=== PATIENT | female | born 1965 | race Caucasian/White ===

== ENCOUNTER 2016-10-25 04:24 | Inpatient (IN) ==
[2016-10-25] MEDS ORDERED: CARDIZEM ONE ×2 (04:27)
[2016-10-25] MEDS ORDERED: CARDIZEM IV ONE ×2 (04:28→04:30)
[2016-10-25] MEDS: CARDIZEM 100 MG/NS 100 MG/100 ML IVPB IV SCH ×2 (04:39→07:54)
[2016-10-25] MEDS ORDERED: LOPRESSOR ONE (04:40)
[2016-10-25] MEDS ORDERED: LOPRESSOR IV ONE (04:41)
--- NOTE | 2016-10-25 04:58 | EKG Report ---
Test Performed on : 10/25/2016 04:26:57 AM Test Reason : CHEST PAIN Blood Pressure : / mmHG Vent. Rate : 158 BPM Atrial Rate : 089 BPM P-R Int : 000 ms QRS Dur : 072 ms QT Int : 288 ms P-R-T Axes : 000 004 062 degrees QTc Int : 467 ms Atrial fibrillation. with rapid ventricular response. Cannot rule out Anterior infarct , age undetermined Abnormal ECG No previous ECGs available Unconfirmed Result
[2016-10-25] MEDS ORDERED: NS 1,000 ML ONE (05:00)
[2016-10-25] MEDS ORDERED: NS 1,000 ML IV ONE (05:03)
--- NOTE | 2016-10-25 05:05 | PROVIDER DOCUMENTATION ---
HPI-Cardiac General - General Chief Complaint: Palpitations Stated Complaint: SOB, CP Time Seen by Provider: 10/25/16 04:28 Source: patient (Patient is a 50 year morbidly obese white female who arrives by EMS with rapid irregular pulse since 3am after awakening from sleep with associated chest pain. Followed by Dr. Mike.) Allergies/Adverse Reactions: Patient Allergies Allergy/AdvReac Type Severity Reaction Status Date / Time buspirone [From BuSpar] Allergy Unknown Verified 10/25/16 04:30 Penicillins Allergy Unknown Verified 10/25/16 04:30 Home Medications: Home Medication List Medication Instructions Recorded Confirmed Last Taken Type NK [No Home Medications] 10/25/16 10/25/16 Unknown History Review of Systems - Adult - REVIEW OF SYSTEMS - ADULT Constitutional: denies: chills, fever Eyes: reports: no symptoms reported Ears, Nose, Mouth & Throat: reports: no symptoms reported Cardiovascular: reports: see HPI, chest pain, irregular heart rate, palpitations Respiratory: denies: shortness of breath Gastrointestinal: denies: abdominal pain Genitourinary: denies: discharge Musculoskeletal: reports: no symptoms reported Integumentary: reports: no symptoms reported Neurological: reports: no symptoms reported Psychiatric: reports: no symptoms reported Endocrine: reports: no symptoms reported Hematologic/Lymphatic: reports: no symptoms reported Allergic/Immunologic: reports: no symptoms reported All Other Systems: Reviewed and Negative Past History - Adult - PAST MEDICAL HISTORY-ADULT Review of Records: reports: Old Records Reviewed, Nursing Assessment Review, Medications Reviewed, Social history reviewed & non-contributory. Major Childhood Illnesses: reports: denies history Cardiovascular: reports: denies history Respiratory: reports: denies history Gastrointestinal: reports: denies history Neurological: reports: denies history Psychiatric: reports: denies history - PRIOR SURGERIES/PROCEDURES Surgical/Procedure History: reports: cholecystectomy, hysterectomy, , other (breast reduction) - FAMILY HISTORY Family History: diabetes - SOCIAL HISTORY Smoking: denies Substance Use: none/never Alcohol Use Frequency: occasionally Physical Exam-General - CONSTITUTIONAL General Appearance: alert, mild distress, other (nondiaphoretic,morbidly obese) - EYES Eyes: other (clear) - HEAD, EARS, NOSE, MOUTH & THROAT HENMT: normocephalic/atraumatic - NECK Neck: supple - RESPIRATORY Respiratory: lungs clear - CARDIOVASCULAR Cardiovascular: tachycardia, irregularly irregular - GASTROINTESTINAL (ABDOMEN) Abdominal Exam: normal bowel sounds, non tender, soft - MUSCULOSKELETAL Back Exam: normal inspection, no CVA tenderness Extremity: normal range of motion, non-tender, other (no homans,no cords) - SKIN Integumentary: normal color, normal turgor - NEUROLOGIC Neurologic: grossly normal - PSYCHIATRIC Psych/Mental Status: normal thought content Progress - PLAN OF CARE/RESULTS Progress/Plan/Lab Results: Vital Signs - 8 hr 10/25/16 04:25 10/25/16 04:31 10/25/16 04:40 Pulse Rate 161 H 150 H 126 H Respiratory Rate 26 H 21 18 Blood Pressure 252/148 193/121 181/149 O2 Sat by Pulse Oximetry 100 100 100 Laboratory Results - last 24 hr 10/25/16 10/25/16 10/25/16 05:02 05:02 05:02 WBC RBC Hgb Hct MCV MCH MCHC RDW Std Deviation Plt Count MPV Immature Gran % (Auto) Neut % (Auto) Lymph % (Auto) Gonzales % (Auto) Eos % (Auto) Baso % (Auto) Immature Gran # (Auto) Neut # (Auto) Lymph # (Auto) Gonzales # (Auto) Eos # (Auto) Baso # (Auto) PT INR APTT (Factor Assay) D-Dimer Sodium 139 Potassium 3.7 Chloride 104 Carbon Dioxide 23 L Anion Gap 12 BUN 12 Creatinine 0.9 Estimated GFR/1.73 m2 > 60 BUN/Creatinine Ratio 13 Glucose 139 H Calculated Osmolality 280 Calcium 9.3 Magnesium 2.0 Total Bilirubin 0.30 AST 20 ALT 25 Alkaline Phosphatase 72 Creatine Kinase 56 Troponin T < 0.010 [id number]-[id number] Pept 77 Total Protein 6.9 Albumin 4.1 Globulin 3.0 Albumin/Globulin Ratio 1.0 10/25/16 10/25/16 05:02 05:02 WBC 9.47 RBC 5.12 Hgb 15.0 Hct 45.2 MCV 88.3 MCH 29.3 MCHC 33.2 RDW Std Deviation 12.6 Plt Count 300 MPV 9.9 Immature Gran % (Auto) 0.2 Neut % (Auto) 58.5 Lymph % (Auto) 30.3 Gonzales % (Auto) 7.6 Eos % (Auto) 3.2 Baso % (Auto) 0.2 Immature Gran # (Auto) 0.02 Neut # (Auto) 5.54 Lymph # (Auto) 2.87 Gonzales # (Auto) 0.72 H Eos # (Auto) 0.30 Baso # (Auto) 0.02 PT 11.3 L INR 0.76 L APTT (Factor Assay) 31.6 D-Dimer 0.38 Sodium Potassium Chloride Carbon Dioxide Anion Gap BUN Creatinine Estimated GFR/1.73 m2 BUN/Creatinine Ratio Glucose Calculated Osmolality Calcium Magnesium Total Bilirubin AST ALT Alkaline Phosphatase Creatine Kinase Troponin T [id number]-Hmezfzbdavd Pept Total Protein Albumin Globulin Albumin/Globulin Ratio Orders Category Date Time Status Cardiac Monitoring DIRECTED Care 10/25/16 04:29 Active Soriano Cath Insertion ORDERED Care 10/25/16 04:56 Active Oxygen Therapy- ED Nursing DIRECTED Care 10/25/16 04:29 Active Saline Loc NOW Care 10/25/16 04:29 Active CHEST-1 VIEW [RAD] Stat Exams 10/25/16 05:42 Ordered CBC WITH ELECTRONIC DIFF [HEME] Stat Lab 10/25/16 05:02 Completed CK PROFILE [SP CHEM] Stat Lab 10/25/16 05:02 Completed COMPREHENSIVE METABOLIC PANEL [CHEM] Stat Lab 10/25/16 05:02 [address] D-DIMER [address] [COAG] Stat Lab 10/25/16 05:02 Completed MAGNESIUM [CHEM] Stat Lab 10/25/16 05:02 Completed PRO B-NATRIURETIC PEPTIDE Stat Lab 10/25/16 05:02 Completed [address]IME WITH INR PL [COAG] Stat Lab 10/25/16 05:[address] [COAG] Stat Lab 10/25/16 05:02 Completed TROPONIN T Stat Lab 10/25/16 05:02 Completed 0.9% Sodium Chloride Inj [Ns] 1,000 ml Med 10/25/16 05:00 Discontinued .ROUTE As Directed 0.9% Sodium Chloride Inj [Ns] 1,000 ml Med 10/25/16 05:03 Active IV 100 mls/hr Diltiazem 100 mg/Ns [Cardizem 100 mg/Ns] Med 10/25/16 04:30 Active 100 mg in 100 ml IV 10 mg/hr Diltiazem [Cardizem] Med 10/25/16 04:28 Discontinued 10 mg IV NOW ONE Diltiazem [Cardizem] Med 10/25/16 04:30 Discontinued 10 mg IV NOW ONE Metoprolol [Lopressor] Med 10/25/16 04:40 Discontinued 5 mg .ROUTE .STK-MED ONE Metoprolol [Lopressor] Med 10/25/16 04:41 Discontinued 5 mg IV NOW ONE EKG [EKG] Stat Ther 10/25/16 04:29 Draft EKG [EKG] Stat Ther 10/25/16 05:45 Ordered Result Diagrams: 10/25/16 05:02 10/25/16 05:02 - CONSULTS/PCP/HOSPITALIST Notification #1 *Consult/PCP/Hospitalist*: Dr. Boothe, hospitalist Time Discussed: 05:05 Reason/Comments: admit pending labs, call back for elevated troponin Consult Disposition: Admit Departure - Departure Date of Disposition Decision: 10/25/16 Time of Disposition Decision: 05:46 DIAGNOSIS: Atrial fibrillation with RVR Chest pain Qualifiers: Chest pain type: unspecified Qualified Code(s): R07.9 - Chest pain, unspecified Disposition: ADMITTED INPATIENT 09 Certified Medical Emergency: Emergent Condition: Stable Referrals and Follow-Ups: Chip Georges MD [Primary Care Provider] - - Critical Care Note This patient required my direct & personal management of CC.: Yes Total Time (mins): 80 Critical Care Statement: This patient required my direct personal management to treat or rule out processes, the absence of which, could potentiallly result in sudden, clinically significant life or limb threatening deterioration. Attestation - Physician/ MAUDE Attestation Patient care was provided by Advanced Practice Provider:: No The physician spent face to face time with patient:: Yes Advanced Practice Provider documentation review:: Supervising physician onsite and consulted in the evaluation and care of this patient. The physician did have a face to face encounter with the patient.
[2016-10-25 05:10] LABS: MANUAL DIFF NEEDED? NO
[2016-10-25 05:12] LABS: BASO% 0.2 % (0.0-0.8); EOS% 3.2 % (0.0-10.0); HEMATOCRIT 45.2 % (37.0-47.0); IMM GRAN# 0.02 X1000 (0.0-0.04); IMM GRAN% 0.2 % (0.0-0.5); LYMPH# 2.87 X1000 (1.2-3.4); LYMPH% 30.3 % (20.5-51.1); MCH 29.3 PG (27-31); MCHC 33.2 g/dL (33-37); MCV 88.3 FL (81-99); MONO# 0.72 X1000 (0.11-0.59); MONO% 7.6 % (1.7-9.3); MPV 9.9 FL (7.4-10.4); NEUT% 58.5 % (42.2-75.2); PLT 300 X1000 (130-400); RBC 5.12 XMIL (4.2-5.4)
[2016-10-25 05:31] LABS: PROTIME 11.3 Seconds (12.1-15.5); PTT PL 31.6 Seconds (22.6-43.9)
[2016-10-25 05:40] LABS: INR 0.76 (0.86-1.15)
[2016-10-25 05:41] LABS: AGAP 12; ALBUMIN 4.1 g/dL (3.5-5.0); ALKALINE PHOSPHATASE 72 U/L (32-104); BUN 12 mg/dL (8-22); CALCIUM 9.3 mg/dL (8.8-10.2); CHLORIDE 104 mmol/L (98-107); CK PROFILE 56 U/L (24-173); COSMO 280; GOT 20 U/L (10-30); GPT 25 U/L (10-36); POTASSIUM 3.7 mmol/L (3.5-5.1); SODIUM 139 mmol/L (136-145); TCO2 23 mmol/L (25-35); TOTAL PROTEIN 6.9 g/dL (6.3-8.3)
--- NOTE | 2016-10-25 05:49 | EKG Report ---
Test Performed on : 10/25/2016 04:45:44 AM Test Reason : a-fib Blood Pressure : / mmHG Vent. Rate : 097 BPM Atrial Rate : 357 BPM P-R Int : 000 ms QRS Dur : 084 ms QT Int : 296 ms P-R-T Axes : 000 -01 006 degrees QTc Int : 375 ms Atrial fibrillation. Low voltage QRS Cannot rule out Anterior infarct (cited on or before 25-OCT-2016) Abnormal ECG When compared with ECG of 25-OCT-2016 04:44, (Unconfirmed) QT has shortened Unconfirmed Result
--- NOTE | 2016-10-25 07:09 | Diag Imaging Result Doc PS360 ---
EXAM: CHEST-1 VIEW HISTORY: chest pain TECHNIQUE: Erect AP portable at 0538 COMMENT: The lungs are clear and the heart and pulmonary vascularity are within normal limits. There are no previous studies. IMPRESSION: Normal chest. Electronically signed by Judd Harrison 10/25/2016 7:06 AM
[2016-10-25] MEDS ORDERED: CARDIZEM 100 MG/NS 100 MG/100 ML IVPB IV SCH ×2 (10:35→11:09)
[2016-10-25] MEDS ORDERED: CARDIZEM PO ONE (11:08)
[2016-10-25] MEDS ORDERED: LOVENOX SUBQ SCH (11:15)
[2016-10-25] MEDS ORDERED: ZOFRAN IV PRN (11:38)
[2016-10-25] MEDS: TYLENOL PO PRN ×2 (11:58→19:19)
--- NOTE | 2016-10-25 15:27 | EKG Report ---
Test Performed on : 10/25/2016 2:32:42 PM Test Reason : rhythm change Blood Pressure : / mmHG Vent. Rate : 069 BPM Atrial Rate : 069 BPM P-R Int : 184 ms QRS Dur : 086 ms QT Int : 402 ms P-R-T Axes : 044 -17 021 degrees QTc Int : 430 ms Normal sinus rhythm. Low voltage QRS Borderline ECG When compared with ECG of 25-OCT-2016 04:45, (Unconfirmed) Sinus rhythm. has replaced Atrial fibrillation. QT has lengthened Unconfirmed Result
--- NOTE | 2016-10-25 16:38 | CONSULTATION ---
DATE OF CONSULTATION: 10/25/2016 INDICATION FOR THE CONSULTATION: New onset atrial fibrillation. HISTORY OF PRESENT ILLNESS: Ms. Zapata is a 50-year-old white female with a history of previous TIAs diagnosed a number of years ago by Dr. Thompson. I have no objective evidence of this in the notes. She does seem to carry a history of obstructive sleep apnea diagnosed in 2003. This was previously evaluated by Dr. Bill. She presented for evaluation of a shortness of breath episode that apparently awoke her from sleep this morning. She presented to the ER and was found to be in atrial fibrillation with a rate of 158 beats per minute. 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 Presently, she has no complaints. She is not having any chest pain. She denies any orthopnea. PAST MEDICAL HISTORY POSITIVE FOR: 1. Possible hypertension. She is not currently on medications but she was noted to be markedly hypertensive on presentation to the ER. In addition, she seems to be tolerating doses of diltiazem at 60 p.o. q.6 hours suggesting some degree of hypertension regardless of the ER presentation. 2. Obstructive sleep apnea diagnosed [place] [address] Bill. 3. Suggested history of TIAs that she says was evaluated by Dr. Thompson here several years ago. SOCIAL HISTORY: Her fiancee is present in the room. No apparent tobacco use. FAMILY HISTORY: Significant for hypertension. REVIEW OF SYSTEMS: A 10 system review of systems is negative except for those mentioned in HPI. PHYSICAL EXAMINATION: Vital signs: Afebrile. Heart rate 71, blood pressure 132/72. General: She is in no acute distress. HEENT: Oropharynx is moist. Normal dentition. Eye examination shows pink conjunctivae, white sclerae. Neck: Examination shows no obvious thyromegaly or thyroid tenderness. Cardiovascular: She is in a regular rate and rhythm. She has no murmurs. She has no S3. She has no S4. She has no lower extremity edema. Chest: Clear bilaterally. She has no increased work of breathing. Abdomen: Soft, nontender, nondistended. She has no obvious organomegaly. Skin Exam: Warm and dry throughout. Neurological: Moving all extremities well. Cranial nerves 2-12 are intact without any sensation deficits. Psychiatric: Alert, oriented, pleasant. Normal mood and affect. PERTINENT DATA: Her EKG on presentation at 4:26 this morning shows atrial fib rate of 158 beats per minute. Followup EKG at 4:45 this morning shows atrial fibrillation with a controlled ventricular response rate of 97 beats per minute. Final EKG occurring today at 14:32 shows sinus rhythm, rate of 69 beats per minute. Her chest x-ray demonstrated no evidence of any acute findings. Her laboratory data shows a white count of 9.5, hematocrit 45, platelet count 300,000. Her INR is 0.76. D-dimer was normal. Sodium 139, potassium is 3.7, BUN 12, creatinine 0.9. Her cardiac enzymes are negative. ProBNP is normal. TSH 3.86. I reviewed her echocardiogram which is unremarkable and seems to show normal LV function as well as no significant valvular abnormalities. ASSESSMENT: New onset atrial fibrillation in a patient with a [id number] score of 4 (hypertension, female sex, TIA). PLAN: Given her elevated [id number] score, I have discontinued the Lovenox and I have placed an order for oral Pradaxa at 150 mg b.i.d. with the 1st dose in the morning considering that her initial dose of Lovenox was given around noon today. I agree with continued use of diltiazem and then may switch that to long-acting diltiazem at 240 mg daily in the morning. Considering her normal TSH and unremarkable echo if she remains in sinus rhythm she may be discharged tomorrow. I have made a followup appointment with me within the next month in the discharge plan. I believe she needs re-evaluation with a sleep study and I will refer her back to Dr. Bill considering he was the one doing the evaluation in 2003. cc: Valente Elizabeth MD
[2016-10-25] MEDS: CARDIZEM PO SCH ×2 (17:19→22:13)
--- NOTE | 2016-10-25 23:51 | HISTORY AND PHYSICAL ---
CHIEF COMPLAINT: Palpitations. HISTORY OF PRESENT ILLNESS: This is a 50-year-old female with no significant medical problems except for that she has hypertension who came in for palpitations and dyspnea. She felt like she could not catch her breath. Significant palpitations occurring for the last 24 hours. She says she has probably had episodes the last 1 or 2 episodes and she came in for evaluation. She was in atrial fibrillation with rapid ventricular response and she was admitted for treatment. She has been rate controlled on Cardizem. So she stabilized on that. She denies any previous history of cardiac issues. No recent changes in medications. No thyroid issues. Again, admitted for atrial fibrillation. She does report some chest tightness mostly with tachycardia. PAST MEDICAL HISTORY: Hypertension, but she is not on medications. PAST SURGICAL HISTORY: 1. Cholecystectomy. 2. Hysterectomy. 3. . 4. Breast reduction surgery. FAMILY HISTORY: Positive for diabetes. SOCIAL HISTORY: No tobacco. No alcohol. ALLERGIES: Buspirone and penicillin. HOME MEDICATIONS: Denies. REVIEW OF SYSTEMS: Ten point review of systems otherwise negative x10 systems. PHYSICAL EXAMINATION: VITAL SIGNS: Blood pressure 132/72, heart rate of 71, respiratory rate 18, temperature 98.7 degrees, 98% on room air. GENERAL: A well-developed female in no acute distress. HEAD: Normocephalic, atraumatic. EYES: Pupils equal, round, reactive to light. Extraocular movements were intact. EAR/NOSE/THROAT: Moist mucous membranes. NECK: Supple. CARDIOVASCULAR: Regular rate and rhythm. No murmurs, gallops, or rubs. PULMONARY: Bilateral breath sounds clear to auscultation. GASTROINTESTINAL: Soft, nontender, nondistended. Bowel sounds are positive. EXTREMITIES: No clubbing or cyanosis. LYMPHATICS: No peripheral edema. NEUROLOGICAL: Exam was nonfocal. LABORATORY DATA: White count 9, hemoglobin and hematocrit of 15 and 45, platelets of 300,000. Coags normal. CMP normal. EKG showed atrial fibrillation with rapid ventricular response. ASSESSMENT: 1. This is a 50-year-old female who comes in for atrial fibrillation. She has now converted. She is on oral Cardizem and seems to be doing okay. Echocardiogram has been ordered. Thyroid function tests. She is having persistent chest pain so we pursued a Cardiology consult but likely we will set up as an outpatient. 2. Hypertension. We may have to add the lisinopril at this point. We will see how she does on Cardizem. 3. Concern over possible hyperglycemia. We will monitor her sugars and check an A1c. DISCHARGE CONDITION: Hopefully discharged in the next 24 hours. cc: Yuval Boothe MD
[2016-10-26] MEDS: CARDIZEM PO SCH ×3 (05:41→11:55)
[2016-10-26 06:49] LABS: HEMATOCRIT 42.8 % (37.0-47.0); HEMOGLOBIN 13.9 g/dL (12.0-16.0); MCH 29.1 PG (27-31); MCHC 32.5 g/dL (33-37); MCV 89.5 FL (81-99); MPV 9.9 FL (7.4-10.4); RBC 4.78 XMIL (4.2-5.4)
[2016-10-26 07:10] LABS: AGAP 10; BUN 11 mg/dL (8-22); CALCIUM 9.1 mg/dL (8.8-10.2); CHLORIDE 107 mmol/L (98-107); COSMO 282; POTASSIUM 4.2 mmol/L (3.5-5.1); SODIUM 141 mmol/L (136-145); TCO2 25 mmol/L (25-35)
[2016-10-26 07:39] VITALS: BP 107/60
[2016-10-26] MEDS ORDERED: PRADAXA PO SCH (09:00)
[2016-10-26] MEDS: CARDIZEM CD PO ONE (11:55)
--- NOTE | 2016-10-26 15:42 | ECHO REPORT ---
ORDER DATE: 10/25/2016 INDICATION FOR THE STUDY: New-onset atrial fibrillation. FINDINGS: 1. Right atrium is normal size. 2. No significant tricuspid regurgitation was identified. 3. Normal RV size and systolic function. 4. Mild pulmonic insufficiency. 5. Mild left atrial enlargement at 4.7 cm. 6. No mitral valve prolapse. Trace mitral regurgitation. 7. Normal LV size, end-diastolic dimension of 4.6. Mild left ventricular hypertrophy with a posterior and interventricular septal wall thickness 1.2 cm each. Normal LV systolic function. Calculated EF of 64%, with normal wall motion. 8. Aortic valve opens well. No evidence of stenosis or insufficiency. 9. Aorta appears normal in visualized segments. 10. No pericardial effusion seen. 11. During the course of the study, the patient was in sinus rhythm. cc: MD Yuval Maria MD
[2016-10-26] MEDS ORDERED: CARDIZEM CD PO ONE (18:36)
--- NOTE | 2016-10-26 19:18 | DISCHARGE SUMMARY ---
ADMISSION DATE: 10/25/2016 DISCHARGE DATE: 10/26/2016 ADMISSION DIAGNOSIS: Atrial fibrillation with rapid ventricular response, new onset. DISCHARGE DIAGNOSIS: Atrial fibrillation with rapid ventricular response, new onset. HOSPITAL COURSE: Briefly, this is a 50-year-old female with history of hypertension, although I do not think she has been currently on medications, presenting with atrial fibrillation with RVR. She was rate controlled with Cardizem when she came in, transitioned to oral Cardizem. Echocardiogram has been pursued. Thyroid function tests were analyzed which were unremarkable. She spontaneously converted on the Cardizem and I think now is normal sinus. She had ruled out with cardiac enzymes. Cardiology was consulted. Per Dr. Elizabeth, he converted her from Lovenox to Pradaxa. Her CHADS2-VASc score was actually calculated. He calculated it at 4 because she had a TIA history. We will discharge her on Cardizem 240 and Pradaxa. She was also encouraged to follow up for a sleep study and then will follow up with Cardiology for further treatment options. The following day she was examined. Clear lung exam. Heart rate was under control. She had ambulated without difficulty and was felt stable to discharge. DISCHARGE MEDICATIONS: 1. Pradaxa 150 b.i.d. 2. Cardizem 240 daily. DISCHARGE TIME: Thirty-two minutes. cc: MD Chip Coleman MD Peter Johnson, MD
[2016-10-29] MEDS: CARDIZEM CD PO ONE (10:51)
== END 2016-10-26 12:15 | disposition home or self-care (01) ==
LOC: P.ED 04:24 → P.ICU 05:59 → P.MEDSURG 15:19 → UNDODISIN 10-26 12:14
PROVIDERS: ATTEND Internal Medicine